=== PATIENT | female | born 1970 | race Caucasian/White ===

== ENCOUNTER 2020-05-27 20:02 | Inpatient (IN) | payer SELFPAY ==
[~2020-05-27] VITALS: Ht 170.2 cm; Wt 107.0 kg
[~2020-05-27 20:02] MED LIST: AMIT25 PO; ARIP10 PO; Aspirin EC81 MG PO; CHOL10002 PO; CITA20 PO; CLON.5 PO; Celexa40 MG PO; DOCU100 PO; ESTR2 PO; GABA400 PO; HYDCHL12.5 PO; HYDCHL25 PO; IBUP800 PO; LAMO100 PO; LOSA50 PO; MEDR150I IM; MIGRAINE RELIE1 EACH; OXYACE5T PO; PROM25 PO; Prinivil10 MG PO; SIME80CH PO; VENL75ER
[2020-05-27 20:33] LABS: Hematocrit 42.7 % (33.0-51.0); Hemoglobin 14.2 g/dL (11.5-16.0); Mean Corpuscular HGB 29.7 pg (26.0-34.0); Mean Corpuscular HGB Conc 33.3 g/dL (31.5-36.5); Mean Corpuscular Volume 89 fL (80-100); Mean Platelet Volume 12.3 fL (9.1-12.4); Platelet Count 186 K/mm3 (150-400); RDW Standard Deviation 42.6 fL (35.1-46.3); Red Blood Cell Count 4.78 M/mm3 (3.80-5.20); White Blood Cell Count 18.11 K/mm3 (4.00-11.30)
[2020-05-27 20:49] LABS: Source, Urine Clean Catch
[2020-05-27 20:51] LABS: Blood, Urine 4+ (Neg); Glucose Qualitative, Urine Neg (Neg); Ketones, Urine 1+ (Neg); Leukocyte Esterase, Urine 3+ (Neg); Nitrite, Urine Neg (Neg); Protein, Urine 3+ (Neg); Urobilinogen, Urine 1+ (Normal)
[2020-05-27 20:51] LABS: Albumin, Blood 2.9 g/dL (3.4-5.0); Albumin/Globulin Ratio 0.6 (0.8-1.8); Bilirubin, Total 1.9 mg/dL (0.1-1.0); Calcium, Blood 8.9 mg/dL (8.5-10.1); Creatinine, Blood 3.05 mg/dL (0.40-1.00); Globulin, Blood 4.5 g/dL (2.2-4.0); Potassium, Blood 3.7 mmol/L (3.5-5.5); Total Protein, Blood 7.4 g/dL (6.4-8.2)
[2020-05-27 20:54] LABS: BAND PERCENT MAN 13 % (0-8); BASOPHILS PERCENT MAN 0 % (0-2); EOSINOPHILS PERCENT MAN 0 % (0-6); LYMPHOCYTES ABSOLUTE MAN 0.54 K/mm3 (0.84-5.20); LYMPHOCYTES PERCENT MAN 3 % (21-46); MONOCYTES ABSOLUTE MAN 0.36 K/mm3 (0.16-1.47); MONOCYTES PERCENT MAN 2 % (4-13); SEG NEUTROPHILS PERCENT MAN 82 % (41-73); TOTAL CELLS COUNTED 100
[2020-05-27 20:56] LABS: Appearance, Urine Turbid (Clear); Bilirubin, Urine 1+ (Neg); Color, Urine Yellow (P-Yellow)
[2020-05-27 20:59] LABS: White Blood Cells, Urine 50-100 /hpf (0-5)
[2020-05-27 21:00] LABS: Amorphous Mod (0-Heavy); Bacteria Mod /hpf; Squamous Epithelial Cells Rare /hpf (Few)
[2020-05-27 21:56] LABS: Magnesium, Blood 1.8 mg/dL (1.6-2.4); Phosphorus, Blood 2.7 mg/dL (2.5-4.9)
--- NOTE | 2020-05-27 23:55 | NUR ---
PATIENT IS A NEW ADMIT FROM THE ED. SBA TRANSFER FROM [facility] TO BED. ON 2L O2 NC AND RA BASELINE. IV ABX INFUSING. AXOX 4. PATIENT REPORTS MILD NAUSEA AND MILD ABDOMINAL PAIN. ORIENTED TO ROOM AND CALL LIGHT SYSTEM. REPORTS DOESN'T WANT TO WATCH TV AND JUST REST IN BED AT THIS TIME. TELEMETRY PLACED AND TECH REPORTS NSR 94. CALL LIGHT IN REACH. WILL CONTINUE TO MONITOR.
--- NOTE | 2020-05-28 01:54 | NUR ---
PATIENT VOIDED 400 mL AND HAD THE URGENCY.
--- NOTE | 2020-05-28 03:00 | NUR ---
NAUSEOUS X ONE AND IV ZOFRAN GIVEN PER EMAR. PATIENT BACK IN BED RESTING.
--- NOTE | 2020-05-28 04:17 | NUR ---
SHIFT SUMMARY PATIENT NAUSEOUS X TWO AND IV REGLAN AND ZOFRAN GIVEN PER EMAR. PATIENT REPORTED ABDOMINAL PAIN AND IV DILAUDID 1 MG GIVEN PER EMAR. PATIENT ABLE TO GOT BACK TO SLEEP. ONE ASSIST TO BSC. IV ABX INFUSED. LR INFUSING AT 125mL/HR. ON 2L O2 NC AND RA BASELINE. LEARNING AND DEVELOPMENT DIRECTOR REPORTS NSR 94. PATIENT HAVING THE URGENCY TO VOID AND 400 mL FIRST VOID. VSS/AFEBRILE. REPORTS SMOKES MARIJUANA DAILY. COOPERATIVE WITH CARE. CALL LIGHT IN REACH. BED IN LOWEST POSITION. WILL CONITNUE TO MONITOR UNTIL DAY SHIFT NURSE ASSUMES CARE.
[2020-05-28 05:42] LABS: BASOPHILS ABSOLUTE AUTO 0.02 K/mm3 (0.00-0.23); BASOPHILS PERCENT AUTO 0 % (0-2); Hematocrit 36.1 % (33.0-51.0); Hemoglobin 11.9 g/dL (11.5-16.0); LYMPHOCYTES ABSOLUTE AUTO 0.31 K/mm3 (0.84-5.20); LYMPHOCYTES PERCENT AUTO 3 % (21-46); MONOCYTES ABSOLUTE AUTO 0.36 K/mm3 (0.16-1.47); MONOCYTES PERCENT AUTO 3 % (4-13); Mean Corpuscular HGB 29.9 pg (26.0-34.0); Mean Corpuscular Volume 91 fL (80-100); Mean Platelet Volume 12.3 fL (9.1-12.4); Platelet Count 156 K/mm3 (150-400); RDW Coefficient Variation 13.3 % (11.7-14.2); RDW Standard Deviation 44.7 fL (35.1-46.3); Red Blood Cell Count 3.98 M/mm3 (3.80-5.20)
[2020-05-28 05:47] LABS: EOSINOPHILS ABSOLUTE AUTO 0.03 K/mm3 (0.00-0.68); EOSINOPHILS PERCENT AUTO 0 % (0-6); IMMATURE GRAN PERCENT AUTO 2 % (0-1); NEUTROPHILS ABSOLUTE AUTO 11.68 K/mm3 (1.96-9.15); NEUTROPHILS PERCENT AUTO 93 % (41-73)
[2020-05-28 06:08] LABS: Albumin, Blood 2.2 g/dL (3.4-5.0); Albumin/Globulin Ratio 0.6 (0.8-1.8); Bilirubin, Total 1.4 mg/dL (0.1-1.0); Bun/Creatinine Ratio 20.1 (12.0-20.0); Calcium, Blood 7.9 mg/dL (8.5-10.1); Creatinine, Blood 2.54 mg/dL (0.40-1.00); Globulin, Blood 3.8 g/dL (2.2-4.0); Potassium, Blood 3.2 mmol/L (3.5-5.5)
--- NOTE | 2020-05-28 16:47 | NUR ---
PT IS A/OX3, PLEASANT AND COOPERATIVE, THE PT IS UP WITH MINIMAL ASSIST, THE PT WAS UP TO SHOWER TODAY AND TOLERATED WELL, THE PT WAS TAKEN OFF OF OXYGEN, THE PT WAS MEDICATED FOR PAIN T/O THE DAY AND FOR NAUSEA X1 THIS AM, THE PT HAS BEEN SLEEPING OFF AND ON T/O THE DAY, FAMILY WAS IN TO SEE THE PT THIS AM, CALL LIGHT IN REACH, WILL CONTINUE TO MONITOR AND ASSESS FOR CHANGES
--- NOTE | 2020-05-29 04:46 | NUR ---
SHIFT SUMMARY ASSUMED CARE OF PT AT 1900. PT IS A/OX4, DENIES N/T IN EXTREMITES. HEART SOUNDS REGULAR, LUNG SOUNDS CLEAR, DENIES CP, BUT HAS SOME SOB DUE TO RETCHING AND PAIN. PT C/O L BCK PAIN AND HEADACHE, MEDICATED PER EMAR. PT ALSO C/O NEASEA AND VOMITED ONCE, MEDICATED PER EMAR. PT IS MOSTLY INDEPENDENT EXEPT FOR NEEDING HELP WITH THE IV POLE. CALL LIGHT IN REACH, BED IN LOWEST POSITION, WILL CONTINUE TO MONITOR UNTIL DAYSHIFT NURSE ARRIVES.
[2020-05-29 05:57] LABS: Bun/Creatinine Ratio 15.4 (12.0-20.0); Calcium, Blood 8.4 mg/dL (8.5-10.1); Creatinine, Blood 1.95 mg/dL (0.40-1.00); Potassium, Blood 3.3 mmol/L (3.5-5.5)
--- NOTE | 2020-05-29 16:53 | NUR ---
PT IS A/OX3, PLEASANT AND COOPERATIVE, THE PT IS UP IND IN HER ROOM. THE PT WAS MEDICATED FOR PAIN X1 SO FAR TODAY AND FOR N/V X2 SO FAR TODAY, THE PT TOOK A LONG NAP THIS AFTERNOON AND WOKE UO NAUSEATED WITH SOME EMISIS, THE PT APPEARS TO BE BREATHING EASILY AT REST, PT WAS STARTED ON A REGULAR DIET AND HAS ONLY BEEN ABLE TO TAKE SMALL AMOUNTS, CALL LIGHT INN REACH, WILL CONTINUE TO MONITOR AND ASSESS FOR CHANGES
[2020-05-30 05:33] LABS: Bun/Creatinine Ratio 12.8 (12.0-20.0); Calcium, Blood 7.9 mg/dL (8.5-10.1); Creatinine, Blood 1.72 mg/dL (0.40-1.00); Potassium, Blood 3.1 mmol/L (3.5-5.5)
--- NOTE | 2020-05-30 05:34 | NUR ---
SHIFT SUMMARY PT WITH INTERMITTENT PAIN. REPORTS AT TIMES "FEELING MUCH BETTER" THEN SHORTLY AFTER WILL BE HEAVING AND HAVING LEFT FLANK/BACK PAIN. MEDICATED X 2 WITH 2 TABS NORCO AND X 1 W/ 1 MG DILAUDID. STRAINER PLACED IN TOILET WITH NO RESULTS SO FAR THIS EVENING. TELEMETRY READING SINUS RHYTHM TO SINUS TACH. TACHYCARDIC WHEN PAINFUL OR NAUSEOUS. VITAL SIGNS STABLE. WILL CONTINUE TO MONITOR.
[2020-05-30] MEDS ORDERED: NIFE30ER PO (11:14)
[2020-05-30] MEDS ORDERED: CEFU500T30 PO (11:14)
[2020-05-30] MEDS ORDERED: Florastor250 MG PO (11:14)
--- NOTE | 2020-05-30 13:26 | NUR ---
PT DISCHARGED FROM THE UNIT. DISCHARGE INSTRUCTIONS REVIEWED. PT LEFT VIA WHEEL CHAIR. DAUGHTER TO DRIVE HOME. IVS REMOVED. MEDICATIONS FAXED.
== END 2020-05-30 13:05 | disposition home or self-care (01) | DRG 872 ==
LOC: ER 20:02 → MEDS 22:49 → ENPENDDIS 05-30 12:09 → MEDS 05-30 13:05
PROVIDERS: Emergency Medicine; Family Medicine; Hospitalist; Nurse Practitioner Acute Care; ADMIT Internal Medicine
DX: A41.51 Sepsis due to Escherichia coli [E. coli] (principal); N17.9 Acute kidney failure, unspecified; E87.1 Hypo-osmolality and hyponatremia; N10 Acute pyelonephritis; R65.20 Severe sepsis without septic shock; I10 Essential (primary) hypertension; E66.9 Obesity, unspecified; E86.0 Dehydration; F32.9 Major depressive disorder, single episode, unspecified; F41.9 Anxiety disorder, unspecified; N20.9 Urinary calculus, unspecified; Z88.0 Allergy status to penicillin; Z68.36 Body mass index [BMI] 36.0-36.9, adult; R93.5 Abnormal findings on diagnostic imaging of other abdominal regions, including retroperitoneum
CPT/HCPCS: 36415; 51701; 74176; 80048; 80053; 81001; 82550; 83605; 83690; 83735; 84100; 85025; 87040; 87077; 87086; 87186; 96361-59; 96365-59; 96372-59; 96375-59; 99285-25; A9270-GY; J0696; J0744; J1170; J1644; J2405; J2765; J7030; J7120

== ENCOUNTER 2020-06-04 18:18 | Inpatient (IN) | payer SELFPAY ==
[~2020-06-04] VITALS: Ht 170.2 cm; Wt 103.7 kg
[~2020-06-04 18:18] MED LIST changes: +CEFU500T30 PO; +Florastor250 MG PO; +NIFE30ER PO
[2020-06-04 19:18] LABS: BASOPHILS ABSOLUTE AUTO 0.06 K/mm3 (0.00-0.23); BASOPHILS PERCENT AUTO 0 % (0-2); EOSINOPHILS ABSOLUTE AUTO 0.03 K/mm3 (0.00-0.68); EOSINOPHILS PERCENT AUTO 0 % (0-6); Hematocrit 39.2 % (33.0-51.0); Hemoglobin 12.4 g/dL (11.5-16.0); IMMATURE GRAN PERCENT AUTO 4 % (0-1); LYMPHOCYTES ABSOLUTE AUTO 1.43 K/mm3 (0.84-5.20); LYMPHOCYTES PERCENT AUTO 7 % (21-46); MONOCYTES PERCENT AUTO 7 % (4-13); Mean Corpuscular HGB Conc 31.6 g/dL (31.5-36.5); Mean Corpuscular Volume 92 fL (80-100); Mean Platelet Volume 9.9 fL (9.1-12.4); NEUTROPHILS ABSOLUTE AUTO 15.63 K/mm3 (1.96-9.15); NEUTROPHILS PERCENT AUTO 81 % (41-73); Platelet Count 486 K/mm3 (150-400); RDW Coefficient Variation 13.6 % (11.7-14.2); RDW Standard Deviation 46.4 fL (35.1-46.3); Red Blood Cell Count 4.27 M/mm3 (3.80-5.20); White Blood Cell Count 19.25 K/mm3 (4.00-11.30)
[2020-06-04 19:34] LABS: International Normalized Ratio 1.15; Prothrombin Time Results 12.2 Sec (9.7-11.5)
[2020-06-04 19:38] LABS: Albumin, Blood 2.4 g/dL (3.4-5.0); Albumin/Globulin Ratio 0.5 (0.8-1.8); Bilirubin, Total 1.4 mg/dL (0.1-1.0); Bun/Creatinine Ratio 10.6 (12.0-20.0); Calcium, Blood 8.7 mg/dL (8.5-10.1); Creatinine, Blood 1.13 mg/dL (0.40-1.00); Globulin, Blood 4.4 g/dL (2.2-4.0); Potassium, Blood 3.6 mmol/L (3.5-5.5); Total Protein, Blood 6.8 g/dL (6.4-8.2)
[2020-06-04 20:38] LABS: Source, Urine Catheter
[2020-06-04 20:43] LABS: Appearance, Urine Clear (Clear); Bilirubin, Urine Neg (Neg); Blood, Urine 4+ (Neg); Color, Urine Yellow (P-Yellow); Glucose Qualitative, Urine Neg (Neg); Ketones, Urine Neg (Neg); Leukocyte Esterase, Urine 2+ (Neg); Nitrite, Urine Neg (Neg); Protein, Urine 2+ (Neg); Specific Gravity, Urine 1.005 (1.003-1.022); Urobilinogen, Urine NORM (Normal)
[2020-06-04 20:52] LABS: Bacteria Rare /hpf; Red Blood Cells, Urine 0-2 /hpf (0-2); Squamous Epithelial Cells Few /hpf (Few)
--- NOTE | 2020-06-05 02:37 | NUR ---
ALDO IS ADMITTED FOR SEPSIS R/T KIDNEY INFECTION. ARRIVED VIA GURNEY. WAS ABLE TO TRANSFER SELF TO BED, WITH SBA. IV INFUSING NS WITH 20K. PAIN IN LEFT FLANK AREA. HAS HAD NAUSEA AND VOMITING SINCE SHE WAS DISCHARGED HOME ON THE . UNABLE TO KEEP FOOD OR DRINKS DOWN. NO LOOSE BM, STATES JUST SMEARS MOST OF THE TIME. ABDOMIN TENDER, STATES DISTENTION IS NORMAL. NO NAUSEA AT THIS TIME. WEAK IN BLE. LOVENOX GIVEN. DENIES BURNING WITH URINATION, JUST FREQUENCY. SKIN PWD. LUNGS CLEAR, HR REGULAR. CALL LIGHT GIVEN. WILL CONTINUE TO MONITOR.
[2020-06-05 05:40] LABS: BASOPHILS ABSOLUTE AUTO 0.05 K/mm3 (0.00-0.23); BASOPHILS PERCENT AUTO 0 % (0-2); EOSINOPHILS ABSOLUTE AUTO 0.07 K/mm3 (0.00-0.68); EOSINOPHILS PERCENT AUTO 1 % (0-6); Hemoglobin 11.2 g/dL (11.5-16.0); IMMATURE GRAN ABSOLUTE AUTO 0.52 K/mm3 (0.00-0.10); IMMATURE GRAN PERCENT AUTO 3 % (0-1); LYMPHOCYTES ABSOLUTE AUTO 1.36 K/mm3 (0.84-5.20); LYMPHOCYTES PERCENT AUTO 9 % (21-46); MONOCYTES ABSOLUTE AUTO 1.29 K/mm3 (0.16-1.47); MONOCYTES PERCENT AUTO 8 % (4-13); Mean Corpuscular HGB 29.4 pg (26.0-34.0); Mean Corpuscular HGB Conc 31.1 g/dL (31.5-36.5); Mean Corpuscular Volume 95 fL (80-100); Mean Platelet Volume 9.9 fL (9.1-12.4); NEUTROPHILS ABSOLUTE AUTO 12.13 K/mm3 (1.96-9.15); NEUTROPHILS PERCENT AUTO 79 % (41-73); Platelet Count 417 K/mm3 (150-400); RDW Coefficient Variation 13.7 % (11.7-14.2); RDW Standard Deviation 47.3 fL (35.1-46.3); Red Blood Cell Count 3.81 M/mm3 (3.80-5.20); White Blood Cell Count 15.42 K/mm3 (4.00-11.30)
--- NOTE | 2020-06-05 05:52 | NUR ---
SHIFT SUMMARY: ALDO WAS ADMITTED TO THE FLOOR FOR SEPSIS R/T KIDNEY INFECTION. SHE WAS JUST DISCHARGED ON May AFTER BEING ADMITTED FOR KIDNEY STONES. ONCE HOME, N/V HAS BEEN PRESISTENT. LITTLE TO NO INTAKE THESE PAST FEW DAYS. LEFT FLANK PAIN STARTED UP LAST TWO DAYS. GFR ON ARRIVAL 55, CREATINE 1.13. WBC WAS 19.25 NOW 15.42. PAIN 5/10 NORCO WAS GIVEN, WHICH HELPED TO EASE THE PAIN. HEATING PAD ALSO APPLIED TO HELP. IV FLUIDS CONTINUE TO INFUSE WITH NO DIFFICULTY. WAS ABLE TO TOLERATE SOME WATER AND SODA LAST NIGHT, NO NAUSEA. VOIDED X1 300. VS WNL, SLEPT REST OF SHIFT. WILL REPORT TO DAY SHIFT.
[2020-06-05 06:06] LABS: Albumin/Globulin Ratio 0.5 (0.8-1.8); Bilirubin, Total 1.3 mg/dL (0.1-1.0); Bun/Creatinine Ratio 8.1 (12.0-20.0); Creatinine, Blood 1.23 mg/dL (0.40-1.00); Potassium, Blood 3.9 mmol/L (3.5-5.5)
--- NOTE | 2020-06-05 16:59 | NUR ---
SHIFT SUMMARY PT ALERT AND ORIENTED THROUGHOUT THIS SHIFT. PT INDEPENDENT IN THE ROOM. PT STATES PAIN IN ABDOMEN STILL PRESENT BUT AT A MUCH LOWER LEVEL. PT UP IN CHAIR WATCHING TELEVISION, IN PLEASANT MOOD. PT DENIES ANY NEEDS AT THIS TIME.
--- NOTE | 2020-06-05 18:45 | NUR ---
PT AOX4 AND COOPERATIVE OF CARE PT CALLS APPROPRIATELY AND IS INDEPENDENT IN ROOM WILL CONTINUE TO MONITOR UNTIL SHIFT CHANGE.
--- NOTE | 2020-06-05 19:40 | NUR ---
ASSUMED CARE. ALDO IS DOING ALOT BETTER TODAY. SHE IS UP MOVING AROUND MORE WITH EASE. STATES HER PAIN HAS IMPROVED TREMENDOUSLY. SHE JUST FEELS SORENESS IN THE LEFT FLANK AND ABDOMIN. IT TOLERABLE. NO NAUSEA OR VOMITING TODAY. IV FLUIDS STILL INFUSING WELL. WAS ABLE TO TOLERATE DIET TODAY AND HELD IT ALL DOWN. DRINKING PLENTY OF FLUIDS. DISCUSSED THINGS THAT IRRITATE THE KIDNEYS. SHE HAS LONG HISTORY OF KIDNEY STONES. APPARENTLY SHE EATS ALOT OF TUMS AND ANTIACIDS WHICH COULD BE CONTRIBUTE TO IT. DISCUSSED LIMITING AND TALKING TO HER PCP REGARDING A ANTIACID MEDICATION. DISCUSSED DECREASE IN SODA WELL. ENCOURAGE CRANBERRY JUICE. WILL CONTINUE TO MONITOR, CALL LIGHT IN REACH.
[2020-06-06 05:15] LABS: BASOPHILS ABSOLUTE AUTO 0.06 K/mm3 (0.00-0.23); BASOPHILS PERCENT AUTO 1 % (0-2); EOSINOPHILS ABSOLUTE AUTO 0.09 K/mm3 (0.00-0.68); EOSINOPHILS PERCENT AUTO 1 % (0-6); Hematocrit 36.5 % (33.0-51.0); Hemoglobin 11.3 g/dL (11.5-16.0); IMMATURE GRAN ABSOLUTE AUTO 0.35 K/mm3 (0.00-0.10); IMMATURE GRAN PERCENT AUTO 3 % (0-1); LYMPHOCYTES ABSOLUTE AUTO 1.04 K/mm3 (0.84-5.20); LYMPHOCYTES PERCENT AUTO 8 % (21-46); MONOCYTES ABSOLUTE AUTO 1.16 K/mm3 (0.16-1.47); MONOCYTES PERCENT AUTO 9 % (4-13); Mean Corpuscular HGB 29.2 pg (26.0-34.0); Mean Corpuscular Volume 94 fL (80-100); Mean Platelet Volume 9.9 fL (9.1-12.4); NEUTROPHILS ABSOLUTE AUTO 10.35 K/mm3 (1.96-9.15); NEUTROPHILS PERCENT AUTO 79 % (41-73); Platelet Count 458 K/mm3 (150-400); RDW Coefficient Variation 13.6 % (11.7-14.2); RDW Standard Deviation 46.3 fL (35.1-46.3); Red Blood Cell Count 3.87 M/mm3 (3.80-5.20); White Blood Cell Count 13.05 K/mm3 (4.00-11.30)
[2020-06-06 05:33] LABS: Bun/Creatinine Ratio 8.3 (12.0-20.0); Calcium, Blood 8.6 mg/dL (8.5-10.1); Creatinine, Blood 1.09 mg/dL (0.40-1.00); Potassium, Blood 4.1 mmol/L (3.5-5.5)
--- NOTE | 2020-06-06 05:44 | NUR ---
SHIFT SUMMARY: ALDO HAD A GOOD NIGHT UP TO THIS AM. SHE HAD MORE ENERGY, WAS INDEPENDENT IN THE ROOM. NO NAUSEA, TOLERATING FLUIDS AND PO INTAKE. NO PAIN MEDS, ONLY HAS SORENESS IN LEFT FLANK AND ABDOMIN. SLEPT WELL THROUGHOUT THE NIGHT. THEN THIS AM SHE GOT UP AND STARTED TO VOMIT AGAIN, HAVING NAUSEA OFF AND ON TILL SHE DID THROW UP. STATES THAT IS WHAT HAPPENED LAST TIME SHE WENT HOME. SHE IS STARTING TO HAVE SOME LOOSE STOOLS ON TOP OF IT. ZOFRAN GIVEN. IV FLUIDS CONTINUED TO INFUSE WELL. WILL REPORT TO DAY SHIFT.
[2020-06-06 08:09] LABS: HBSAG SCREEN Negative (Negative); HEP A AB, IGM Negative (Negative); HEP B CORE AB, IGM Negative (Negative); HEP C VIRUS AB <0.1 (0.0-0.9)
--- NOTE | 2020-06-06 17:11 | NUR ---
SHIFT SUMMARY PT ALERT AND ORIENTED THIS SHIFT. PT INDEPENDENT IN THE ROOM. PT AMBULATED INDEPENDENTLY IN THE HALLS THIS AFTERNOON. PT DENIES N/V SINCE THIS MORNING. PT HAD 1 BM THIS AFTERNOON, SAMPLE SENT TO LAB FOR TEST. PT ALTERNATED CHAIR AND BED THROUGHOUT THE SHIFT. PT CURRENTLY SITTING UP IN BED. PT STATES NO FURTHER NEEDS AT THIS TIME
[2020-06-06 17:50] LABS: Adenovirus F 40/41 Not Detected (NOT DETECT); Astrovirus Not Detected (NOT DETECT); Campylobacter Sp Not Detected (NOT DETECT); Cryptosporidium Not Detected (NOT DETECT); Cyclospora Cayetanensis Not Detected (NOT DETECT); E. Coli O157 Not Detected (NOT DETECT); Entamoeba Histolytica Not Detected (NOT DETECT); Enteroaggregative E. coli-EAEC Not Detected (NOT DETECT); Enteropathogenic E. coli-EPEC Not Detected (NOT DETECT); Enterotoxigenic E. coli-ETEC Not Detected (NOT DETECT); Giardia Lamblia Not Detected (NOT DETECT); Norovirus GI/GII Not Detected (NOT DETECT); Plesiomonas Shigelloides Not Detected (NOT DETECT); Rotavirus A Not Detected (NOT DETECT); Salmonella Sp Not Detected (NOT DETECT); Sapovirus Not Detected (NOT DETECT); Shiga Toxin-prod E. coli-STEC Not Detected (NOT DETECT); Shigella/Enteroin E. coli-EIEC Not Detected (NOT DETECT); Vibrio Cholerae Not Detected (NOT DETECT); Vibrio Sp Not Detected (NOT DETECT); Yersinia Enterocolitica Not Detected (NOT DETECT)
--- NOTE | 2020-06-07 05:28 | NUR ---
SHIFT SUMMARY PT HAS HAD NO ACUTE CHANGES THIS SHIFT, NO C/O ANY KIND, PT SLEPT T/O THE NIGHT & AT THIS TIME, CALL LIGHT IN REACH, WILL CONT TO MONITOR UNTIL REPORT GIVEN TO DAY RN.
[2020-06-07 05:54] LABS: BASOPHILS ABSOLUTE AUTO 0.05 K/mm3 (0.00-0.23); BASOPHILS PERCENT AUTO 1 % (0-2); EOSINOPHILS ABSOLUTE AUTO 0.18 K/mm3 (0.00-0.68); EOSINOPHILS PERCENT AUTO 2 % (0-6); Hematocrit 35.8 % (33.0-51.0); IMMATURE GRAN ABSOLUTE AUTO 0.28 K/mm3 (0.00-0.10); IMMATURE GRAN PERCENT AUTO 3 % (0-1); LYMPHOCYTES ABSOLUTE AUTO 1.19 K/mm3 (0.84-5.20); LYMPHOCYTES PERCENT AUTO 12 % (21-46); MONOCYTES ABSOLUTE AUTO 0.97 K/mm3 (0.16-1.47); MONOCYTES PERCENT AUTO 10 % (4-13); Mean Corpuscular HGB 28.9 pg (26.0-34.0); Mean Corpuscular HGB Conc 30.7 g/dL (31.5-36.5); Mean Corpuscular Volume 94 fL (80-100); Mean Platelet Volume 10.1 fL (9.1-12.4); NEUTROPHILS ABSOLUTE AUTO 7.36 K/mm3 (1.96-9.15); NEUTROPHILS PERCENT AUTO 73 % (41-73); Platelet Count 476 K/mm3 (150-400); RDW Coefficient Variation 13.4 % (11.7-14.2); RDW Standard Deviation 46.7 fL (35.1-46.3); White Blood Cell Count 10.03 K/mm3 (4.00-11.30)
[2020-06-07 06:24] LABS: Albumin, Blood 2.1 g/dL (3.4-5.0); Albumin/Globulin Ratio 0.5 (0.8-1.8); Bilirubin, Total 1.1 mg/dL (0.1-1.0); Bun/Creatinine Ratio 6.5 (12.0-20.0); Calcium, Blood 8.4 mg/dL (8.5-10.1); Creatinine, Blood 1.07 mg/dL (0.40-1.00); Globulin, Blood 3.9 g/dL (2.2-4.0); Potassium, Blood 4.2 mmol/L (3.5-5.5)
[2020-06-07] MEDS ORDERED: CEFU500T30 PO (11:23)
[2020-06-07] MEDS ORDERED: ONDA4 PO (11:24)
[2020-06-07] MEDS ORDERED: VISBIOME PROBIOTIC PO (11:26)
--- NOTE | 2020-06-07 12:15 | NUR ---
PATIENT D/C'D TO HOME. RX MEDICATIONS FAXED TO [facility]. DC INSTRUCTIONS AND EDUCATION DISCUSSED WITH PATIENT AND COPY PROVIDED. PATIENT DENIES ANY FURTHER QUESTIONS OR CONCERNS. FOLLOW UP APPT ON May AT 2PM.
== END 2020-06-07 12:05 | disposition home or self-care (01) | DRG 872 ==
LOC: ER 18:18 → MEDS 22:35
PROVIDERS: Nurse Practitioner Acute Care; Physician Assistant; Student in an Organized Health Care Education/Training Program; ADMIT Internal Medicine
DX: A41.51 Sepsis due to Escherichia coli [E. coli] (principal); N10 Acute pyelonephritis; K52.1 Toxic gastroenteritis and colitis; T36.95XA Adverse effect of unspecified systemic antibiotic, initial encounter; K76.0 Fatty (change of) liver, not elsewhere classified; I10 Essential (primary) hypertension; Z88.0 Allergy status to penicillin
CPT/HCPCS: 0097U; 36415; 74176; 76705; 80048; 80053; 80074; 81001; 83605; 85025; 85610; 85730; 87040; 87086; 93005; 93010; 96361; 96365; 96375; 99285-25; A9270-GY; J0696; J1650; J2405; J3010; J3480; J7050; J7120

== ENCOUNTER → 2023-03-07 | Outpatient (CLI) | payer SELFPAY ==
[~2023-03-07] MED LIST changes: +Cipro500 MG PO; +Flagyl500 MG PO; +Flomax0.4 MG PO; +ONDA4 PO; +VISBIOME 112.51 EACH PO; +VISBIOME PROBIOTIC PO
[2023-03-07 13:19] LABS: BASOPHILS ABSOLUTE AUTO 0.04 K/mm3 (0.00-0.23); BASOPHILS PERCENT AUTO 0 % (0-2); EOSINOPHILS ABSOLUTE AUTO 0.08 K/mm3 (0.00-0.68); EOSINOPHILS PERCENT AUTO 1 % (0-6); Hematocrit 45.4 % (33.0-51.0); Hemoglobin 15.2 g/dL (11.5-16.0); IMMATURE GRAN ABSOLUTE AUTO 0.04 K/mm3 (0.00-0.10); IMMATURE GRAN PERCENT AUTO 0 % (0-1); LYMPHOCYTES ABSOLUTE AUTO 1.72 K/mm3 (0.84-5.20); LYMPHOCYTES PERCENT AUTO 15 % (21-46); MONOCYTES PERCENT AUTO 7 % (4-13); Mean Corpuscular HGB 28.3 pg (26.0-34.0); Mean Corpuscular HGB Conc 33.5 g/dL (31.5-36.5); Mean Corpuscular Volume 84 fL (80-100); Mean Platelet Volume 10.6 fL (9.1-12.4); NEUTROPHILS ABSOLUTE AUTO 8.95 K/mm3 (1.96-9.15); NEUTROPHILS PERCENT AUTO 77 % (41-73); Platelet Count 318 K/mm3 (150-400); RDW Coefficient Variation 12.7 % (11.7-14.2); RDW Standard Deviation 38.8 fL (35.1-46.3); Red Blood Cell Count 5.38 M/mm3 (3.80-5.20); White Blood Cell Count 11.63 K/mm3 (4.00-11.30)
[2023-03-07 13:27] LABS: Albumin/Globulin Ratio 1.2 (0.8-1.8); Bilirubin, Total 1.7 mg/dL (0.1-1.0); Bun/Creatinine Ratio 7.8 (12.0-20.0); Calcium, Blood 9.3 mg/dL (8.5-10.1); Creatinine, Blood 1.16 mg/dL (0.40-1.00); Globulin, Blood 3.4 g/dL (2.2-4.0); Potassium, Blood 3.9 mmol/L (3.5-5.5); Total Protein, Blood 7.4 g/dL (6.4-8.2)
== END | disposition home or self-care (01) ==
LOC: LAB 13:14 → LAB SHORT 13:14
PROVIDERS: Family Medicine
DX: R10.9 Unspecified abdominal pain (principal)
CPT/HCPCS: 80053; 83690; 85025

== ENCOUNTER 2023-03-09 08:37 | Emergency (ER) | payer SELFPAY ==
[~2023-03-09] VITALS: Ht 170.2 cm; Wt 109.8 kg
[~2023-03-09 08:37] MED LIST changes: -Cipro500 MG PO; -Flagyl500 MG PO; -Flomax0.4 MG PO; -VISBIOME 112.51 EACH PO
[2023-03-09 09:30] LABS: BASOPHILS ABSOLUTE AUTO 0.04 K/mm3 (0.00-0.23); BASOPHILS PERCENT AUTO 0 % (0-2); EOSINOPHILS ABSOLUTE AUTO 0.13 K/mm3 (0.00-0.68); EOSINOPHILS PERCENT AUTO 1 % (0-6); Hematocrit 45.4 % (33.0-51.0); Hemoglobin 14.9 g/dL (11.5-16.0); IMMATURE GRAN ABSOLUTE AUTO 0.04 K/mm3 (0.00-0.10); IMMATURE GRAN PERCENT AUTO 0 % (0-1); LYMPHOCYTES ABSOLUTE AUTO 1.25 K/mm3 (0.84-5.20); LYMPHOCYTES PERCENT AUTO 13 % (21-46); MONOCYTES ABSOLUTE AUTO 0.71 K/mm3 (0.16-1.47); MONOCYTES PERCENT AUTO 7 % (4-13); Mean Corpuscular HGB 27.6 pg (26.0-34.0); Mean Corpuscular HGB Conc 32.8 g/dL (31.5-36.5); Mean Corpuscular Volume 84 fL (80-100); NEUTROPHILS ABSOLUTE AUTO 7.45 K/mm3 (1.96-9.15); NEUTROPHILS PERCENT AUTO 77 % (41-73); Platelet Count 265 K/mm3 (150-400); RDW Coefficient Variation 12.4 % (11.7-14.2); RDW Standard Deviation 38.1 fL (35.1-46.3); Red Blood Cell Count 5.39 M/mm3 (3.80-5.20); White Blood Cell Count 9.62 K/mm3 (4.00-11.30)
[2023-03-09 09:42] LABS: Albumin/Globulin Ratio 1.2 (0.8-1.8); Bilirubin, Total 2.2 mg/dL (0.1-1.0); Bun/Creatinine Ratio 8.4 (12.0-20.0); Calcium, Blood 9.5 mg/dL (8.5-10.1); Creatinine, Blood 1.07 mg/dL (0.40-1.00); Globulin, Blood 3.2 g/dL (2.2-4.0); Potassium, Blood 3.9 mmol/L (3.5-5.5); Total Protein, Blood 7.2 g/dL (6.4-8.2)
[2023-03-09 10:54] LABS: Source, Urine Clean Catch
[2023-03-09 10:56] LABS: Appearance, Urine Clear (Clear); Bilirubin, Urine Neg (Neg); Blood, Urine Neg (Neg); Color, Urine Yellow (P-Yellow); Glucose Qualitative, Urine Neg (Neg); Ketones, Urine 3+ (Neg); Leukocyte Esterase, Urine Neg (Neg); Nitrite, Urine Neg (Neg); Protein, Urine Neg (Neg); Specific Gravity, Urine 1.015 (1.003-1.022); Urobilinogen, Urine NORM (Normal)
[2023-03-09] MEDS ORDERED: Flomax0.4 MG PO (11:29)
[2023-03-09] MEDS ORDERED: Cipro500 MG PO (11:29)
[2023-03-09] MEDS ORDERED: Flagyl500 MG PO (11:29)
[2023-03-09] MEDS ORDERED: VISBIOME 112.51 EACH PO (11:30)
== END 2023-03-09 11:46 | disposition home or self-care (01) ==
LOC: ER 08:37
PROVIDERS: Family Medicine
DX: K57.32 Diverticulitis of large intestine without perforation or abscess without bleeding (principal); N20.2 Calculus of kidney with calculus of ureter; K59.00 Constipation, unspecified; I10 Essential (primary) hypertension; E78.5 Hyperlipidemia, unspecified; Z88.0 Allergy status to penicillin; Z79.899 Other long term (current) drug therapy
CPT/HCPCS: 74176; 80053; 81003; 85025; 99284-25; J7030

== ENCOUNTER → 2024-03-08 | Outpatient (CLI) | payer OTHER ==
[~2024-03-08] MED LIST changes: +Cipro500 MG PO; +Flagyl500 MG PO; +Flomax0.4 MG PO; +VISBIOME 112.51 EACH PO
[2024-03-08 17:44] LABS: BASOPHILS ABSOLUTE AUTO 0.04 K/mm3 (0.00-0.23); BASOPHILS PERCENT AUTO 1 % (0-2); EOSINOPHILS ABSOLUTE AUTO 0.19 K/mm3 (0.00-0.68); EOSINOPHILS PERCENT AUTO 3 % (0-6); Hemoglobin 13.7 g/dL (11.5-16.0); IMMATURE GRAN ABSOLUTE AUTO 0.01 K/mm3 (0.00-0.10); IMMATURE GRAN PERCENT AUTO 0 % (0-1); LYMPHOCYTES ABSOLUTE AUTO 1.92 K/mm3 (0.84-5.20); LYMPHOCYTES PERCENT AUTO 35 % (21-46); MONOCYTES ABSOLUTE AUTO 0.49 K/mm3 (0.16-1.47); MONOCYTES PERCENT AUTO 9 % (4-13); Mean Corpuscular HGB 24.7 pg (26.0-34.0); Mean Corpuscular HGB Conc 30.4 g/dL (31.5-36.5); Mean Corpuscular Volume 81 fL (80-100); Mean Platelet Volume 10.9 fL (9.1-12.4); NEUTROPHILS PERCENT AUTO 52 % (41-73); Platelet Count 260 K/mm3 (150-400); RDW Coefficient Variation 14.4 % (11.7-14.2); RDW Standard Deviation 41.6 fL (35.1-46.3); Red Blood Cell Count 5.55 M/mm3 (3.80-5.20); White Blood Cell Count 5.55 K/mm3 (4.00-11.30)
[2024-03-08 18:33] LABS: Alanine Aminotransfer (ALT/SGP 23 U/L (12-78); Albumin, Blood 4.2 g/dL (3.4-5.0); Albumin/Globulin Ratio 1.1 (0.8-1.8); Alk Phos 105 U/L (50-136); Anion Gap 10 mmol/L (3-11); Aspartate Aminotrans (AST/SGOT 20 U/L (12-37); Bilirubin, Total 0.8 mg/dL (0.1-1.0); Blood Urea Nitrogen 11 mg/dL (8-24); Bun/Creatinine Ratio 11.3 (12.0-20.0); CO2, Blood 26 mmol/L (21-32); Calcium, Blood 9.4 mg/dL (8.5-10.1); Chloride, Blood 107 mmol/L (98-108); Cholesterol 252 mg/dL (50-200); Creatinine, Blood 0.98 mg/dL (0.40-1.00); Globulin, Blood 3.8 g/dL (2.2-4.0); Glomerular Filtration Rate 70 (60-); Glucose, Blood 84 mg/dL (70-99); HDL Cholesterol 63 mg/dL (>39); LDL/HDL RATIO 2.6; Low Density Lipoprotein Chol 165 mg/dL (0-110); Magnesium, Blood 2.4 mg/dL (1.6-2.4); Potassium, Blood 4.3 mmol/L (3.5-5.5); Sodium, Blood 139 mmol/L (136-145); Triglycerides 119 mg/dL (30-160); Very Low Density Lipoprot Chol 23 mg/dL (6-32)
== END | disposition home or self-care (01) ==
LOC: LAB SHORT 16:06 → LAB 16:06
PROVIDERS: Family Medicine
DX: I10 Essential (primary) hypertension (principal); E78.5 Hyperlipidemia, unspecified
CPT/HCPCS: 80053; 80061; 83735; 84443; 85025

== ENCOUNTER → 2024-12-12 | Outpatient (CLI) | payer OTHER ==
[2024-12-12 18:48] LABS: BASOPHILS ABSOLUTE AUTO 0.04 K/mm3 (0.00-0.23); BASOPHILS PERCENT AUTO 1 % (0-2); EOSINOPHILS ABSOLUTE AUTO 0.27 K/mm3 (0.00-0.68); EOSINOPHILS PERCENT AUTO 4 % (0-6); Hematocrit 41.8 % (33.0-51.0); Hemoglobin 12.7 g/dL (11.5-16.0); IMMATURE GRAN ABSOLUTE AUTO 0.03 K/mm3 (0.00-0.10); IMMATURE GRAN PERCENT AUTO 0 % (0-1); LYMPHOCYTES ABSOLUTE AUTO 1.61 K/mm3 (0.84-5.20); LYMPHOCYTES PERCENT AUTO 23 % (21-46); MONOCYTES PERCENT AUTO 7 % (4-13); Mean Corpuscular HGB 23.8 pg (26.0-34.0); Mean Corpuscular HGB Conc 30.4 g/dL (31.5-36.5); Mean Corpuscular Volume 78 fL (80-100); Mean Platelet Volume 11.5 fL (9.1-12.4); NEUTROPHILS ABSOLUTE AUTO 4.64 K/mm3 (1.96-9.15); NEUTROPHILS PERCENT AUTO 65 % (41-73); Platelet Count 294 K/mm3 (150-400); RDW Standard Deviation 39.3 fL (35.1-46.3); Red Blood Cell Count 5.34 M/mm3 (3.80-5.20); White Blood Cell Count 7.09 K/mm3 (4.00-11.30)
[2024-12-12 21:14] LABS: Alanine Aminotransfer (ALT/SGP 25 U/L (12-78); Albumin, Blood 3.8 g/dL (3.4-5.0); Alk Phos 116 U/L (50-136); Anion Gap 10 mmol/L (3-11); Aspartate Aminotrans (AST/SGOT 16 U/L (12-37); Bilirubin, Total 0.9 mg/dL (0.1-1.0); Blood Urea Nitrogen 11 mg/dL (8-24); Bun/Creatinine Ratio 11.1 (12.0-20.0); C-REACTIVE PROTEIN, EXT RANGE 0.599 mg/dL (0.000-0.300); CHOL/HDL RATIO 3.6; CO2, Blood 26 mmol/L (21-32); Calcium, Blood 9.3 mg/dL (8.5-10.1); Chloride, Blood 108 mmol/L (98-108); Cholesterol 183 mg/dL (50-200); Creatinine, Blood 0.99 mg/dL (0.40-1.00); Globulin, Blood 3.8 g/dL (2.2-4.0); Glomerular Filtration Rate 69 (60-); Glucose, Blood 80 mg/dL (70-99); HDL Cholesterol 51 mg/dL (>39); LDL/HDL RATIO 1.8; Low Density Lipoprotein Chol 92 mg/dL (0-110); Potassium, Blood 4.4 mmol/L (3.5-5.5); Sodium, Blood 140 mmol/L (136-145); Total Protein, Blood 7.6 g/dL (6.4-8.2); Triglycerides 200 mg/dL (30-160); Very Low Density Lipoprot Chol 40 mg/dL (6-32)
[2024-12-15 01:23] LABS: ANTI-NUCLEAR AB ANA,IGG ELISA None Detected (None Detected)
== END ==
LOC: LAB SHORT 17:46 → LAB 17:46
PROVIDERS: Nurse Practitioner Family
DX: I10 Essential (primary) hypertension (principal); E78.5 Hyperlipidemia, unspecified; M25.50 Pain in unspecified joint; E55.9 Vitamin D deficiency, unspecified
CPT/HCPCS: 80053; 80061; 82306; 84443; 85025; 85651; 86038; 86140; 86430

== ENCOUNTER → 2025-03-13 | Outpatient (CLI) | payer OTHER | LOC: LAB 17:45 → LAB SHORT 17:45 | DX: R30.0 Dysuria (principal) | CPT/HCPCS: 87086 ==